=== PATIENT | male | born 1990 | race Caucasian/White ===

== ENCOUNTER 2017-03-22 01:38 | Emergency (ER) | payer OTHER ==
[~2017-03-22] VITALS: Ht 175.3 cm; Wt 83.9 kg
[2017-03-22 01:38] VITALS: BP_SYST 156
== END 2017-03-22 01:50 ==
LOC: SED 01:38
DX: Z04.1 Encounter for examination and observation following transport accident (principal); Z88.5 Allergy status to narcotic agent
CPT/HCPCS: 99283